=== PATIENT | female | born 1990 | race Caucasian/White ===

== ENCOUNTER 2018-07-14 18:38 | Emergency (ER) | payer BC ==
[2018-07-14] MEDS ORDERED: NS 1,000 ML IV ONE (18:50)
[2018-07-14 19:01] LABS: PLATELET COUNT 333 10^3/uL (150-400)
--- NOTE | 2018-07-14 19:04 | EDPHY ---
H & P Time Seen by Provider: 07/14/18 18:51 HPI/ROS: HPI Altered mental status, possible overdose. 28-year-old female with [place] police and by ambulance from her apartment. She called a friend of hers who lives in [place]. She told this person that she took some sleeping medications and was having a hard time breathing. He then called 911. The giving officer who responded entered the patient's apartment. She was not wearing a shirt at that time. He identified himself and explained that he was a piece officer. He asked her to put assured on. She started screaming at the top of her lungs. She then calmed down and after EMS assessment agreed to transport. On the way to the hospital she became combative and started striking out at EMS personnel. An IV had been established by EMS and she was sedated with 2.5 mg of IV Versed. She took an unknown amount of a NyQuil like a sleep aid which contains acetaminophen, Doxilamine and dextromethorphan. She also took an unknown amount of a trichologist thick sleep aid called "lights out", this per the labile on the bottle contains a MAGDA analog as well as melatonin and lemon extract. Currently she is too sedated to get further history. It is unknown if she did this intentionally to hurt herself. ROS: Constitutional: No fever, no chills. No weakness. Eyes: No discharge. No changes in vision. ENT: No sore throat. No nasal congestion or rhinorrhea. Respiratory: No cough. No shortness of breath. Cardiac: No chest pain, no palpitations. Gastrointestinal: No abdominal pain, no vomiting, no diarrhea. Genitourinary: No hematuria. No dysuria or increased frequency with urination. Musculoskeletal: No back pain. No neck pain. No myalgias or arthralgias. Skin: No rashes. Neurological: No headache. No focal weakness or altered sensation. Review of systems obtained after patient sobered. Past medical history: Bipolar possibly some other psychiatric diagnosis. She does take an unknown psychiatric medication. Social history: She is apparently divorce currently. She was alone in her apartment. Unknown if she smokes. Alcohol, IV drug street drug use unknown. Physical Exam: General Appearance: Sleepy but arouses to voice. Not responding to questioning currently because of sedation. This patient appears generally well- hydrated and well-nourished. Head: Normocephalic atraumatic. Eyes: Pupils equal and round and reactive to light at 3-2 mm bilaterally, no pallor or injection. No lid edema, erythema or injection. ENT, Mouth: Mucous membranes are moist. The pharyngeal tissues are unremarkable. No edema or swelling. No asymmetry suggestive of abscess. No erythema or exudates. No tongue lacerations or abrasions. Respiratory: There are no retractions, lungs are clear to auscultation with good air movement bilaterally. Cardiovascular: Regular tachycardia. No murmur appreciated. Gastrointestinal: Abdomen is soft and nontender, no masses, bowel sounds normal. No focal tenderness at McBurney's point. No Bear sign. Neurological: Motor sensory function is grossly intact. Cranial nerves are normal. Skin: Warm and dry, no rashes. Musculoskeletal: Neck is supple and nontender. Extremities are symmetrical. All joints range without pain or impingement. Psychiatric: No agitation. No depression. Database: EKG: EKG time is 6:56 p.m.; EKG shows a narrow complex sinus tachycardia with a ventricular rate of 135. The NM, QRS, QT intervals are within normal limits. There are no ST-T wave changes indicative of ischemic or injury pattern. No evidence of right heart strain. Interpreted by me. Imaging: Procedures: Emergency department course: Triage vital signs reviewed. IV was placed by EMS. As noted above she had been given 2.5 mg of IV Versed. She was started on IV normal saline with 1 L to be given over the next hour. EKG obtained and reviewed by myself. She will be placed on a detainer. 8:40 p.m., patient re-evaluated, she is now awake and communicating. She is very anxious. She tells me that she is going through a lot of personal stress with the divorce. The nursing staff has also reached out to her parents. Her parents state that they have tried to get her inpatient psychiatric treatment in the past but she always talks her way out of it. She tells me now that she is not suicidal and that she was not trying to hurt herself. She states that she was just trying to sleep. She states that she took 2 of the "lights out pills" and 2 sips of the NyQuil as noted above. She states that she feels that she is having a panic attack now. She is in agreement to talk to Behavioral Health. TLC notified. She will be given 5 mg of IV Valium for anxiety. 9:00 p.m. Patient awaiting behavioral health evaluation. Care turned over to Dr. Makayla Humphreys at this time. Differential Diagnosis: The differential diagnosis on this patient includes but is not limited to intentional versus accidental overdose. This represents a partial list of diagnoses considered. These considerations are based on history, physical exam , past history, reassessment and diagnostic testing. (Herminio Cline) Constitutional: Initial Vital Signs Temperature (C) 36.8 C 07/14/18 18:43 Heart Rate 127 H 07/14/18 18:43 Respiratory Rate 18 07/14/18 18:43 Blood Pressure 146/90 H 07/14/18 18:43 O2 Sat (%) 95 07/14/18 18:43 O2 Delivery Mode Room Air Allergies/Adverse Reactions: Penicillins Allergy (Verified 07/14/18 20:54) Medical Decision Making ED Course/Re-evaluation: 11pm: awaiting evaluation. Signed over to Dr. Whyte. (Makayla Humphreys) Other Provider: 22:[address] Humphreys pending mental health evaluation. 0500 patient increasingly agitated, crying, yelling and screaming the department. She has come down but is asking for something to help relax and sleep. I have given her 5 mg of Haldol IM. [address] Gonsalez pending mental health evaluation. (Bharat Whyte) Care assumed at 0640 with psychiatric evaluation pending. 1053: Psychiatric evaluation has been obtained, it is the recommendation that the hold be vacated and the patient be discharged. Not suicidal or agitated at this time. Does not appear to be gravely disabled or a danger to herself at this time. (Héctor Gonsaelz) - Data Points Laboratory Results: Laboratory Results 07/14/18 18:56 07/14/18 18:56 07/14/18 18:56 Smear Review By Eric RUSSO MD Medications Given: Discontinued Medications Diazepam (Valium) 5 mg IVP EDNOW ONE Stop: 07/14/18 20:43 Last Admin: 07/14/18 20:46 Dose: 5 mg Haloperidol Lactate (Haldol Injection) 5 mg IM EDNOW ONE Stop: 07/15/18 05:21 Last Admin: 07/15/18 05:25 Dose: 5 mg Sodium Chloride (Ns) 1,000 mls @ 0 mls/hr IV ONCE ONE; Wide Open PRN Reason: Protocol Stop: 07/14/18 18:51 Last Admin: 07/14/18 18:57 Dose: 1,000 mls Lorazepam (Ativan) 0.5 mg PO EDNOW ONE Stop: 07/15/18 05:08 Last Admin: 07/15/18 05:08 Dose: 0.5 mg Lorazepam (Ativan Injection) 2 mg IM EDNOW ONE Stop: 07/15/18 05:21 Last Admin: 07/15/18 05:25 Dose: 2 mg Lorazepam (Ativan) 1 mg PO EDNOW ONE Stop: 07/15/18 11:15 Last Admin: 07/15/18 11:16 Dose: 1 mg Point of Care Test Results: Chemistry 07/14/18 18:51 POC Sodium 142 mEq/L mEq/L (135-145) POC Potassium 2.9 mEq/L L mEq/L (3.3-5.0) POC Chloride 107 mEq/L mEq/L (97-110) POC BUN 14 mg/dL mg/dL (7-23) POC Creatinine 0.7 mg/dL mg/dL (0.6-1.0) POC Glucose 81 mg/dL mg/dL (70-100) ISTAT H&H 07/14/18 18:51 POC Hgb 17.0 gm/dL H gm/dL (12.6-16.3) POC Hct 50 % H % (38-47) Departure - Departure Disposition: Home, Routine, Self-Care Clinical Impression: Bipolar disorder Qualifiers: Active/Remission status: currently active Current bipolar episode type: manic Current episode severity: moderate Qualified Code(s): F31.12 - Bipolar disorder , current episode manic without psychotic features, moderate Condition: Good Instructions: Bipolar Disorder (ED) Referrals: Ivania King MD [Medical Doctor] - As per Instructions
[2018-07-14] MEDS ORDERED: DIAZEPAM 5 MG/ML 1 ML SYR IVP ONE (20:42)
[2018-07-14] MEDS ORDERED: DIAZEPAM 5 MG/ML 1 ML SYR ONE (20:43)
--- NOTE | 2018-07-14 21:25 | CPEKG ---
Test Reason : OPEN Blood Pressure : / mmHG Vent. Rate : 135 BPM Atrial Rate : 135 BPM P-R Int : 126 ms QRS Dur : 075 ms QT Int : 310 ms P-R-T Axes : 079 096 025 degrees QTc Int : 465 ms Sinus tachycardia Probable left atrial enlargement Borderline right axis deviation Confirmed by Herminio Cline ([id number]) on 07/14/2018 9:24:43 PM Referred By: Confirmed By:Herminio Cline
[2018-07-15] MEDS ORDERED: LORazepam 0.5 MG TAB ONE (05:06)
[2018-07-15] MEDS ORDERED: LORazepam 0.5 MG TAB PO ONE (05:07)
[2018-07-15] MEDS ORDERED: HALOPERIDOL LACT 5 MG/ML INJ IM ONE (05:20)
[2018-07-15] MEDS ORDERED: LORazepam 2 MG/ML INJ IM ONE (05:20)
[2018-07-15] MEDS ORDERED: HALOPERIDOL LACT 5 MG/ML INJ ONE (05:24)
[2018-07-15] MEDS ORDERED: LORazepam 2 MG/ML INJ ONE (05:25)
[2018-07-15] MEDS ORDERED: LORazepam 1 MG TAB PO ONE (11:14)
[2018-07-15 11:31] VITALS: BP 141/85
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
--- NOTE | 2018-07-15 12:01 | ASMTTCLDSP ---
TLC Discharge Disposition Disposition: Answers: Discharge If Answers: Yes DISCHARGED: Patient/family given suicide hotline info & SAMHSA brochure? Disposition Notes: Notes: Pt stated commitment or ability to keep self safe, denied thoughts of self harm or harm to others. Pt expressed plans to follow up with her initial therapy appointment with counselor at [facility] named Ashley tomorrow at 9 a.m. Pt was given local hotline information and SAMHSA brochure After an Attempt. Discharge Concerns/Recommendations: Notes: In consultation with [facility] ED physician, Héctor Gonsalez MD, Dr. Gonsalez concurred that pt does not appear to meet 27-65 criteria requiring psychiatric hospitalization as pt does not appear to be an imminent risk of harm to self/others/gravely disabled due to a mental illness condition. Was patient given the Answers: Not applicable Inpatient Behavioral Health Prohibited Belongings List while in the ED? Date Signed: 07/15/2018 12:00 PM Electronically Signed By:Kamaljit Thurston
== END 2018-07-15 11:35 | disposition home or self-care (01) ==
DX: F31.12 Bipolar disorder, current episode manic without psychotic features, moderate (principal); E86.9 Volume depletion, unspecified
CPT/HCPCS: 80305; 82435-PO; 82565-PO; 82947-PO; 84132-PO; 84295-PO; 84520-PO; 85014-PO; 96374; G0480; J1630; J2060; J3360